=== PATIENT | female | born 1970 | race Caucasian/White ===

== ENCOUNTER → 2017-02-28 | Outpatient (CLI) | payer MEDICARE ==
[~2017-02-28] MED LIST: ALL DAY ALLERGY10 MG PO; LEVOTHYROXINE125 MCG PO; PERCOCET 10-321 EACH PO; PRAVASTATIN SOD40 MG PO; TAMOXIFEN CITRA20 MG PO; VENTOLIN/PROVE0.5 ML INH; VITAMIN D32000 UNI1 PO; ZANTAC 7575 MG PO
[2017-02-28 09:37] LABS: HEMOGLOBIN 15.9 gm/dl (12.3-15.3); RED BLOOD COUNT 4.79 M/UL (4.00-5.10); WHITE BLOOD COUNT 9.2 K/UL (4.5-11.0)
== END ==
LOC: OPSV2 09:07
PROVIDERS: Obstetrics & Gynecology
DX: Z01.812 Encounter for preprocedural laboratory examination (principal); N84.0 Polyp of corpus uteri; D50.9 Iron deficiency anemia, unspecified; K90.9 Intestinal malabsorption, unspecified; J98.4 Other disorders of lung; Z85.3 Personal history of malignant neoplasm of breast; Z80.8 Family history of malignant neoplasm of other organs or systems; Z79.811 Long term (current) use of aromatase inhibitors
CPT/HCPCS: 36415; 81001; 82565; 84520; 85025; 87077; 87086; 87186